=== PATIENT | male | born 1970 | race Caucasian/White ===

== ENCOUNTER → 2017-01-19 | Outpatient (CLI) | payer OTHER ==
[~2017-01-19] MED LIST: DIAZEPAM 10 MG TABLET. ONE; IOHEXOL 300 MG/ML 100ML VIAL. ONE; IOHEXOL 300 MG/ML 50 ML VIAL. ONE; IV NORMAL SALINE 1000ML BAG 1,000 ML ONE; LIDOCAINE 1% Multi-Dose 20 ML VIAL. ONE; MIDAZOLAM HCL/PF 2 MG/2 ML VIAL. ONE; fentaNYL PF VIAL 100 MCG/2 ML VIAL ONE
--- NOTE | 2017-01-19 13:14 | PCVCINTER ---
EXAM: 1. INTRAVASCULAR ULTRASOUND OF THE INFERIOR VENA CAVA 2. INTRAVASCULAR ULTRASOUND OF THE RIGHT COMMON AND EXTERNAL ILIAC AND COMMON FEMORAL VEINS 3. INTRAVASCULAR ULTRASOUND OF THE LEFT COMMON AND EXTERNAL ILIAC AND COMMON FEMORAL VEINS INDICATION: Iliofemoral venous obstruction. Chronic Venous Insufficiency Class 4a. Leg pain and swelling. Failed conservative therapy including medical grade compression stockings for at least 3 months. Venous hypertension chronic. PROCEDURE: Procedure and risks of IVC and ileofemoral venography and intravascular ultrasound, and venous stent placement as appropriate including bleeding, infection, venous thrombosis, stent migration/thrombosis, contrast-induced nephropathy requiring dialysis, stroke, and were discussed with the patient and consent obtained. Patient was given IV antibiotics. The patient's right neck and chest was prepped and draped in the normal sterile fashion. IV conscious sedation was used throughout the procedure with appropriate monitoring. Ultrasound was used to interrogate the neck and showed the internal jugular vein to be patent. A spot ultrasound image of the internal jugular vein was saved. Under ultrasound guidance access into the right internal jugular vein was obtained and an 8F sheath was placed to the level of the lower IVC. Catheter was placed into the lower IVC and IVC cavogram performed. Catheter was placed to the level of the right common femoral vein and right iliofemoral venogram obtained. Catheter was placed to the level of the left common femoral vein and left iliofemoral venogram was obtained. The 8 [place] intravascular ultrasound catheter was then placed to the level of the right common femoral vein and intravascular ultrasound evaluation of the right common femoral, right external iliac, and right common iliac veins was accomplished in a pull-back fashion. The 8 [place] intravascular ultrasound catheter was then placed to the level of the left common femoral vein and intravascular ultrasound evaluation of the left common femoral, left external iliac, and left common iliac veins was accomplished in a pull-back fashion. Intravascular ultrasound evaluation of the inferior vena cava was then accomplished in a pullback fashion. Sheath was removed and hemostasis obtained using manual pressure. FINDINGS: IVC INTRAVASCULAR ULTRASOUND: Normal vessel: 15.1 x 24.3 mm. Area = 264.8 sq. mm. RIGHT COMMON ILIAC VEIN INTRAVASCULAR ULTRASOUND: Normal vessel: 7.6 x 17.5 mm. Area = 122.9 sq. mm. RIGHT EXTERNAL ILIAC VEIN INTRAVASCULAR ULTRASOUND: Normal vessel: 8.7 x 19.1 mm. Area = 121.3 sq. mm. RIGHT COMMON FEMORAL VEIN INTRAVASCULAR ULTRASOUND: Normal vessel: 14.9 x 22.0 mm. Area = 266.6 sq. mm. LEFT COMMON ILIAC VEIN INTRAVASCULAR ULTRASOUND: Normal vessel: 12.7 x 17.4 mm. Area = 179.0 sq. mm. LEFT EXTERNAL ILIAC VEIN INTRAVASCULAR ULTRASOUND: Normal vessel: 7.5 x 15.2 mm. Area = 103.1 sq. mm. LEFT COMMON FEMORAL VEIN INTRAVASCULAR ULTRASOUND: Normal vessel: 13.4 x 22.1 mm. Area = 259.2 sq. mm. VENOGRAPHY: INFERIOR VENA CAVA: Vessel is patent without significant stenosis, scarring, or extrinsic compression. RIGHT COMMON ILIAC VEIN: Vessel is patent without significant stenosis, scarring, or extrinsic compression. RIGHT EXTERNAL ILIAC VEIN: Vessel is patent without significant stenosis, scarring, or extrinsic compression. RIGHT COMMON FEMORAL VEIN: Vessel is patent without significant stenosis, scarring, or extrinsic compression. LEFT COMMON ILIAC VEIN: Vessel is patent without significant stenosis, scarring, or extrinsic compression. LEFT EXTERNAL ILIAC VEIN: Vessel is patent without significant stenosis, scarring, or extrinsic compression. LEFT COMMON FEMORAL VEIN: Vessel is patent without significant stenosis, scarring, or extrinsic compression. IMPRESSION: Intravascular ultrasound and venographic evaluation of the inferior vena cava and the common and external iliac and common femoral veins bilaterally is within normal limits. No evidence of significant venous obstruction is identified. LOC:[id number]
== END | disposition home or self-care (01) ==
LOC: PCVCINTER 07:13
PROVIDERS: ATTEND Nuclear Medicine Nuclear Cardiology
DX: I87.2 Venous insufficiency (chronic) (peripheral) (principal); I87.309 Chronic venous hypertension (idiopathic) without complications of unspecified lower extremity
CPT/HCPCS: 36012; 37252; 37253; 75822; 75825; 76937; 99152; 99153; C1751; C1753; C1769; C1894; J2250; J3010; J7030; Q9967